=== PATIENT | male | born 1995 | race Hispanic/Latino ===

== ENCOUNTER 2016-06-04 11:50 | Emergency (ER) | payer SELFPAY ==
[2016-06-04 12:08] VITALS: BP 122/89
== END 2016-06-04 13:50 | disposition left against medical advice (07) ==
LOC: ED 11:50
DX: S61.419A Laceration without foreign body of unspecified hand, initial encounter (principal); Z53.21 Procedure and treatment not carried out due to patient leaving prior to being seen by health care provider; X58.XXXA Exposure to other specified factors, initial encounter; Y93.9 Activity, unspecified; Y92.9 Unspecified place or not applicable; Y99.9 Unspecified external cause status

== ENCOUNTER 2017-08-28 18:12 | Emergency (ER) | payer SELFPAY ==
[2017-08-28 18:51] VITALS: BP 141/86
[2017-08-28] MEDS ORDERED: MOTRIN ONE (20:56)
[2017-08-28] MEDS ORDERED: MOTRIN PO ONE (21:00)
--- NOTE | 2017-08-28 21:13 | Emergency Department Report ---
ED ENT HPI - General Chief complaint: Dental/Oral Stated complaint: TOOTH PAIN Time Seen by Provider: 08/28/17 20:13 Source: patient Mode of arrival: Ambulatory Limitations: No Limitations - History of Present Illness Initial comments: [id number] male comes in complaining of tooth ache for 3 days. Patient reports he tried Goody extra strength with no resolution of pain. Patient ports no past medical history currently takes no medications on a daily basis and has no known drug allergies. MD complaint: tooth pain -: days(s) (3) Severity scale (0 -10): 10 Quality: stabbing, aching, sharp Consistency: constant Worsens with: none, other (drinking ice water makes it feel better) Associated Symptoms: toothache. denies: fever, cough, pain with swallowing, sore throat, tinnitus - Related Data Previous Rx's Medication Instructions Recorded Last Taken Type Amoxicillin [Amoxicillin TAB] 875 mg PO BID 10 Days #20 tablet 08/28/17 Unknown Rx Ibuprofen [Motrin 600 MG tab] 600 mg PO Q8H PRN #30 tablet 08/28/17 Unknown Rx traMADol [Ultram 50 MG tab] 50 mg PO Q6HR PRN #12 tablet 08/28/17 Unknown Rx Allergies Allergy/AdvReac Type Severity Reaction Status Date / Time No Known Allergies Allergy Unverified 06/04/16 12:03 ED Dental HPI - General Chief complaint: Dental/Oral Stated complaint: TOOTH PAIN Time Seen by Provider: 08/28/17 20:13 Source: patient Mode of arrival: Ambulatory Limitations: No Limitations - Related Data Previous Rx's Medication Instructions Recorded Last Taken Type Amoxicillin [Amoxicillin TAB] 875 mg PO BID 10 Days #20 tablet 08/28/17 Unknown Rx Ibuprofen [Motrin 600 MG tab] 600 mg PO Q8H PRN #30 tablet 08/28/17 Unknown Rx traMADol [Ultram 50 MG tab] 50 mg PO Q6HR PRN #12 tablet 08/28/17 Unknown Rx Allergies Allergy/AdvReac Type Severity Reaction Status Date / Time No Known Allergies Allergy Unverified 06/04/16 12:03 ED Review of Systems ROS: Stated complaint: TOOTH PAIN Other details as noted in HPI Comment: All other systems reviewed and negative ENT: dental pain ED Past Medical Hx - Past Medical History Previous Medical History?: No - Surgical History Additional Surgical History: NASAL SURGERY - Social History Smoking Status: Current Every Day Smoker Substance Use Type: Alcohol - Medications Home Medications: Home Medications Medication Instructions Recorded Confirmed Last Taken Type Amoxicillin [Amoxicillin TAB] 875 mg PO BID 10 Days #20 tablet 08/28/17 Unknown Rx Ibuprofen [Motrin 600 MG tab] 600 mg PO Q8H PRN #30 tablet 08/28/17 Unknown Rx traMADol [Ultram 50 MG tab] 50 mg PO Q6HR PRN #12 tablet 08/28/17 Unknown Rx ED Physical Exam - General Limitations: No Limitations - Expanded ENT Exam Expanded Teeth exam: Present: dental tenderness # (30,3), gingival enlargement, other ( right side jaw tenderness) - Neck Neck exam: Present: full ROM. Absent: tenderness, lymphadenopathy ED Course Vital Signs 08/28/17 18:48 Temperature 98 F Pulse Rate 72 Respiratory 18 Rate Blood Pressure 141/86 O2 Sat by Pulse 99 Oximetry ED Medical Decision Making - Medical Decision Making Patient has been evaluated by this provider fast track. Ibuprofen 800 mg given for pain management Discussed with patient I will discharge him on amoxicillin ibuprofen and trauma and tramadol Discussed with patient that he needs to follow up with a dentist. Critical care attestation.: If time is entered above; I have spent that time in minutes in the direct care of this critically ill patient, excluding procedure time. ED Disposition Clinical Impression: Toothache, Tooth abscess Disposition: DC-01 TO HOME OR SELFCARE Is pt being admited?: No Does the pt Need Aspirin: No Condition: Stable Instructions: Amoxicillin (By mouth), Dental Abscess (ED), Toothache (ED) Additional Instructions: Complete antibiotics as prescribed. Take pain medication as needed and follow- up with the dentist. Prescriptions: Amoxicillin [Amoxicillin TAB] 875 mg PO BID 10 Days #20 tablet Ibuprofen [Motrin 600 MG tab] 600 mg PO Q8H PRN #30 tablet PRN Reason: Pain traMADol [Ultram 50 MG tab] 50 mg PO Q6HR PRN #12 tablet PRN Reason: Pain Referrals: PRIMARY CARE, [Primary Care Provider] - 3-5 Days [facility] [Outside] - 3-5 Days [facility] [Outside] - 3-5 Days [facility] [Provider Group] - 3-5 Days Forms: Work/School Release Form(ED)
== END 2017-08-28 21:15 | disposition home or self-care (01) ==
LOC: ED 18:12
DX: K04.7 Periapical abscess without sinus (principal); K08.89 Other specified disorders of teeth and supporting structures; F17.200 Nicotine dependence, unspecified, uncomplicated
CPT/HCPCS: 99282

== ENCOUNTER 2021-11-02 09:08 | Emergency (ER) | payer SELFPAY ==
--- NOTE | 2021-11-02 16:00 | XRay Report ---
Left hand 3 views INDICATION: Injury FINDINGS: MCP joints normal. Diffuse soft tissue swelling overlying the fifth MCP joint. There may be some soft tissue gas. Overlying soft tissue infection could have this appearance. No bony destructiv e change is definitely seen. Signer Name: Ryan Tilley MD Signed: 11/02/2021 3:55 PM Workstation Name: [email or web address]
[2021-11-02 17:21] LABS: Hematocrit 50.9 % (35.5-45.6); Hemoglobin 16.3 gm/dl (11.8-15.2); Mean Corpuscular HGB Conc 32 % (32-34); Mean Corpuscular Volume 93 fl (84-94); Platelet Count 220 K/mm3 (140-440); Red Cell Distribution Width 14.6 % (13.2-15.2)
[2021-11-02] MEDS ORDERED: CEFEPIME/NS 2 GM/100 ML 2 GM/100 ML BAG IV ONE (17:42)
[2021-11-02] MEDS ORDERED: fentaNYL 100 MCG/2 ML INJ IV ONE (17:42)
[2021-11-02] MEDS ORDERED: SODIUM CHLORIDE 0.9% 1000 ML 1,000 ML IV ONE (17:42)
[2021-11-02] MEDS ORDERED: VANCOMYCIN/NS 1 GM/250 ML 1 GM/250 ML BAG IV ONE (17:42)
[2021-11-02] MEDS ORDERED: ONDANSETRON 4 MG/2 ML INJ IV ONE (17:42)
[2021-11-02 17:46] LABS: Alanine Aminotransferase 11 units/L (7-56); Albumin 5.3 g/dL (3.9-5); BUN/Creatinine Ratio 5; Blood Urea Nitrogen 4 mg/dL (9-20); Calcium 10.4 mg/dL (8.4-10.2); Hemolysis Index 6
--- NOTE | 2021-11-02 17:49 | Emergency Department Report ---
HPI - General Chief Complaint: Extremity Injury, Upper Time Seen by Provider: 11/02/21 17:33 - HPI HPI: Room 38 The patient is a 26-year-old male present with a chief complaint of left hand pain and swelling. Patient states he has had a chronic callus on the palm of his left hand for several years. Patient states he noticed some mild swelling around the callus approximate 2 weeks ago but there was no pain. The patient states he was annoyed of having a callus and attempted to use a pocket knife to cut off the callus 2 days ago. Patient states immediately after cutting the callus there was some white drainage within the swelling increased. Patient denies fever at home. Patient gives his pain a score of "11/10." ED Past Medical Hx - Past Medical History Previous Medical History?: No - Surgical History Past Surgical History?: Yes Additional Surgical History: NASAL SURGERY - Family History Family history: no significant - Social History Smoking Status: Current Every Day Smoker (Cigars) Substance Use Type: Alcohol (Frequently), Marijuana - Medications Home Medications: Home Medications Medication Instructions Recorded Confirmed Last Taken Type Amoxicillin [Amoxicillin TAB] 875 mg PO BID 10 Days #20 tablet 08/28/17 Unknown Rx Ibuprofen [Motrin 600 MG tab] 600 mg PO Q8H PRN #30 tablet 08/28/17 Unknown Rx traMADoL [Ultram 50 MG tab] 50 mg PO Q6HR PRN #12 tablet 08/28/17 Unknown Rx ED Review of Systems ROS: Stated complaint: SWOLLEN HAND Other details as noted in HPI Constitutional: denies: fever Eyes: denies: eye pain ENT: denies: throat pain Respiratory: no symptoms reported Cardiovascular: denies: chest pain Endocrine: no symptoms reported Gastrointestinal: denies: abdominal pain Genitourinary: denies: dysuria Musculoskeletal: arthralgia, myalgia Skin: change in color Neurological: denies: headache Physical Exam - Physical Exam Vital Signs: Vital Signs 11/02/21 10:00 Temperature 99.7 F H Pulse Rate 62 Respiratory 18 Rate Blood Pressure 139/91 [Right] O2 Sat by Pulse 100 Oximetry Physical Exam: GENERAL: The patient is well-developed well-nourished male lying on stretcher appearing to be in mild discomfort. [] HEENT: Normocephalic. Atraumatic. Extraocular motions are intact. Patient has moist mucous membranes. NECK: Supple. Trachea midline CHEST/LUNGS: Clear to auscultation. There is no respiratory distress noted. HEART/CARDIOVASCULAR: Regular. There is tachycardia. There is no gallop rub or murmur. ABDOMEN: Abdomen is soft, nontender. Patient has normal bowel sounds. There is no abdominal distention. SKIN: There is swelling and discoloration at the fifth MCP of the left hand. Left small finger is swollen and in flexed position and there is pain with passive movement. There is tenderness to palpation along the associated flexor tendons. There is lymphangitic streaking up the arm. There is left axillary tenderness to palpation NEURO: The patient is awake, alert, and oriented. The patient is cooperative. The patient has no focal neurologic deficits. The patient has normal speech. GCS 15 MUSCULOSKELETAL: There is tenderness to palpation of the palmar aspect of the left hand ED Course Vital Signs 11/02/21 10:00 Temperature 99.7 F H Pulse Rate 62 Respiratory 18 Rate Blood Pressure 139/91 [Right] O2 Sat by Pulse 100 Oximetry - Consultations Consultation #1: 11/02/21 17:44 [place] transfer line called 11/02/21 17:49 [place] at capacity only excepting trauma, strokes and bergeron 11/02/21 17:49 [facility] [place] 11/02/21 17:51 [facility] [place] 11/02/21 17:51 [place] transfer center called 11/02/21 17:59 [place] on diversion 11/02/21 17:59 [place] transfer line called 11/02/21 18:18 Case briefly discussed with transfer line-they state they will contact the on- call physician and call back 11/02/21 18:51 Case discussed with [place] hand surgeon Dr. Reno and [place] ED physician Dr. Harris-will accept patient in transfer to [facility] ED ED Medical Decision Making - Lab Data Result diagrams: 11/02/21 16:19 11/02/21 16:19 Laboratory Tests 11/02/21 11/02/21 16:19 16:19 WBC 19.9 H RBC 5.50 H Hgb 16.3 H Hct 50.9 H MCV 93 MCH 30 MCHC 32 RDW 14.6 Plt Count 220 Sodium 136 L Potassium 4.2 Chloride 93.3 L Carbon Dioxide 23 Anion Gap 24 BUN 4 L Creatinine 0.8 Estimated GFR > 60 BUN/Creatinine Ratio 5 Glucose 92 Calcium 10.4 H Total Bilirubin 0.90 AST 17 ALT 11 Alkaline Phosphatase 115 C-Reactive Protein 4.40 H Total Protein 8.3 H Albumin 5.3 H Albumin/Globulin Ratio 1.8 - Radiology Data Radiology results: report reviewed (Left hand x-ray), image reviewed (Left hand x-ray) interpreted by me: Left hand x-ray-soft tissue swelling. No acute fracture seen. No foreign body seen [facility] [address] [place] [address] XRay Report Signed Patient: KATIE SOSA MR#: [id number] : 1995 Acct:[id number] Age/Sex: 26 / M ADM Date: 11/02/21 Loc: ED Attending Dr: Ordering Physician: JAIME KRISHNAMURTHY Date of Service: 11/02/21 Procedure(s): XR hand 3+V LT Accession Number(s): [id number] cc: JAIME KRISHNAMURTHY Fluoro Time In Minutes: Left hand 3 views INDICATION: Injury FINDINGS: MCP joints normal. Diffuse soft tissue swelling overlying the fifth MCP joint. There may be some soft tissue gas. Overlying soft tissue infection could have this appearance. No bony destructive change is definitely seen. Signer Name: Ryan Tilley MD Signed: 11/02/2021 3:55 PM Workstation Name: [id number] Transcribed By: Dictated By: XIN TILLEY MD Electronically Authenticated By: XIN TILLEY MD Signed Date/Time: 11/02/211554 DD/ 54 TD/TT: - Differential Diagnosis Flexor tenosynovitis Critical care attestation.: If time is entered above; I have spent that time in minutes in the direct care of this critically ill patient, excluding procedure time. ED Disposition Clinical Impression: Abscess of left hand, Flexor tenosynovitis of finger Disposition: 51 HOSPICE/MEDICAL FACILITY Is pt being admited?: No Does the pt Need Aspirin: No Condition: Fair Referrals: PRUDENCE XAVIER MD [Primary Care Provider] - 3-5 Days Time of Disposition: 18:51 (Awaiting transport)
[2021-11-02 17:59] LABS: Erythrocyte Sedimentation Rate 5 mm/Hr (0-20)
[2021-11-02] MEDS ORDERED: HYDROmorphone 1 MG/1 ML INJ IV ONE (20:02)
[2021-11-02 22:06] VITALS: BP 144/82
== END 2021-11-02 22:06 | disposition hospice, inpatient (51) ==
LOC: ED 09:08
DX: L02.512 Cutaneous abscess of left hand (principal); M65.849 Other synovitis and tenosynovitis, unspecified hand; F17.200 Nicotine dependence, unspecified, uncomplicated; F10.20 Alcohol dependence, uncomplicated; F12.90 Cannabis use, unspecified, uncomplicated
CPT/HCPCS: 36415; 73130; 80053; 85027; 85652; 86140; 87040; 96365; 96368; 96375; 99285; J0692; J1170; J2405; J3010; J3370; J7030